=== PATIENT | male | born 1965 | race Caucasian/White ===

== ENCOUNTER 2020-04-04 08:40 | Emergency (ER) | payer MEDICAID ==
[2020-04-04] MEDS ORDERED: KETOROLAC 60 MG VIAL (30MG/ML) ONE (09:01)
[2020-04-04] MEDS ORDERED: ACETAMINOPHEN 500 MG TABLET ONE (09:02)
== END 2020-04-04 09:53 | disposition home or self-care (01) ==
LOC: EDH 08:40
DX: S40.012A Contusion of left shoulder, initial encounter (principal); S46.002A Unspecified injury of muscle(s) and tendon(s) of the rotator cuff of left shoulder, initial encounter; I10 Essential (primary) hypertension; F84.0 Autistic disorder; W18.39XA Other fall on same level, initial encounter; Y93.01 Activity, walking, marching and hiking; Y92.89 Other specified places as the place of occurrence of the external cause; Y99.8 Other external cause status
CPT/HCPCS: 73030; 96372; 99283; J1885

== ENCOUNTER 2020-12-28 12:23 | Emergency (ER) | payer MEDICAID ==
[~2020-12-28] VITALS: Ht 165.1 cm; Wt 72.6 kg
[2020-12-28 12:25] VITALS: BP 175/97
[2020-12-28] MEDS ORDERED: KETOROLAC 60 MG VIAL (30MG/ML) IM SCH (13:01)
[2020-12-28] MEDS ORDERED: CELE200 PO (13:58)
[2020-12-28] MEDS ORDERED: HYDROCODONE/ACETAMINOPHEN 5/325 MG TAB PO STA (14:08)
== END 2020-12-28 14:29 | disposition home or self-care (01) ==
LOC: EDH 12:23
DX: M54.50 Low back pain, unspecified (principal); F32.A Depression, unspecified; I10 Essential (primary) hypertension
CPT/HCPCS: 72100; 96372; 99283; J1885

== ENCOUNTER 2020-12-31 07:34 | Emergency (ER) | payer MEDICAID ==
[~2020-12-31] VITALS: Ht 177.8 cm; Wt 70.3 kg
[~2020-12-31 07:34] MED LIST: CELE200 PO
[2020-12-31] MEDS ORDERED: DEXAMETHASONE SOD PHOSPHATE 10MG/ML 1ML VIAL ONE (08:21)
[2020-12-31] MEDS ORDERED: 0.9%NACL 50ML 50 ML IV ONE (08:22)
[2020-12-31] MEDS ORDERED: KETOROLAC 30MG VIAL (30MG/ML) IV SCH (08:30)
[2020-12-31] MEDS ORDERED: DEXAMETHASONE 10MG/ML 1ML VIAL 0 MG in 0.9%NACL 50ML 50 ML IV SCH (08:30)
[2020-12-31] MEDS ORDERED: CARISOPRODOL 350 MG TABLET PO SCH (09:30)
[2020-12-31] MEDS ORDERED: CLONIDINE HCL 0.2 MG TABLET PO ONE (09:30)
[2020-12-31] MEDS ORDERED: HYDRALAZINE 20MG/ML VIAL IV SCH (09:30)
[2020-12-31] MEDS ORDERED: CARI350T PO (10:04)
[2020-12-31 10:06] VITALS: BP 147/85
== END 2020-12-31 10:17 | disposition home or self-care (01) ==
LOC: EDH 07:34
DX: M70.71 Other bursitis of hip, right hip (principal); M51.36 Other intervertebral disc degeneration, lumbar region; F84.0 Autistic disorder; I10 Essential (primary) hypertension; Z79.1 Long term (current) use of non-steroidal anti-inflammatories (NSAID); Z79.52 Long term (current) use of systemic steroids; Z79.899 Other long term (current) drug therapy
CPT/HCPCS: 96365; 96375; 99284; J0360; J1100; J1885

== ENCOUNTER 2021-03-03 17:46 | Emergency (ER) | payer MEDICAID ==
[~2021-03-03] VITALS: Ht 167.6 cm; Wt 68.0 kg
[~2021-03-03 17:46] MED LIST changes: +CARI350T PO
[2021-03-03] MEDS ORDERED: NITROGLYCERIN 1GM OINT 1 INCH/1GM TD ONE (18:00)
[2021-03-03] MEDS ORDERED: ASPIRIN 81MG CHEW TAB PO ONE (18:00)
[2021-03-03 18:05] LABS: BASOPHILS % (AUTO) 0.5 % (0.0-5.0); EOSINOPHILS % (AUTO) 1.7 % (0.0-8.0); HEMATOCRIT 44.9 % (42-54); LYMPHOCYTES % (AUTO) 21.3 % (21.0-51.0); MEAN CORPUSCULAR HEMOGLOBIN 29.5 pg (27.0-33.0); MEAN CORPUSCULAR HGB CONC 33.2 g/dL (32.0-36.0); MEAN CORPUSCULAR VOLUME 88.9 fL (79-99); NEUTROPHILS % (AUTO) 70.1 % (40.0-77.0); PLATELET COUNT (AUTO) 208 K/uL (130-400); RED BLOOD CELL COUNT(AUTO) 5.05 MIL/uL (4.50-6.20); RED CELL DISTRIBUTION WIDTH 12.4 % (11.0-15.5); WHITE BLOOD COUNT (AUTO) 7.6 K/uL (4.8-10.8)
[2021-03-03 18:14] LABS: CREATININE 1.3 mg/dL (0.5-1.5); POTASSIUM 3.9 mmol/L (3.5-5.1)
[2021-03-03 18:20] LABS: ALBUMIN 4.2 g/dL (3.5-5.0); BILIRUBIN,TOTAL 0.2 mg/dL (0.2-1.0); TOTAL PROTEIN, SERUM 7.1 g/dL (6.0-8.3)
[2021-03-03 18:33] LABS: AMPHET/METH SCREEN,URINE NEGATIVE (NEGATIVE); BARBITURATE SCREEN, URINE NEGATIVE (NEGATIVE); BENZODIAZEPINES SCREEN,URINE NEGATIVE (NEGATIVE); CANNABINOID SCREEN,URINE NEGATIVE (NEGATIVE); COCAINE SCREEN,URINE NEGATIVE (NEGATIVE); OPIATE SCREEN,URINE NEGATIVE (NEGATIVE); PHENCYCLIDINE SCREEN,URINE NEGATIVE (NEGATIVE)
[2021-03-03] MEDS ORDERED: KETOROLAC 30MG VIAL (30MG/ML) IV ONE (19:00)
[2021-03-03] MEDS ORDERED: CYCL-309 PO (21:39)
[2021-03-03] MEDS ORDERED: MELO7.5T12 PO (21:39)
[2021-03-03 21:45] VITALS: BP 147/91
== END 2021-03-03 21:45 | disposition home or self-care (01) ==
LOC: EDH 17:46
DX: R07.89 Other chest pain (principal); I10 Essential (primary) hypertension; Z79.1 Long term (current) use of non-steroidal anti-inflammatories (NSAID); Z79.82 Long term (current) use of aspirin
CPT/HCPCS: 36415; 71045; 80053; 80305; 84484 ×2; 85025; 93005 ×2; 96374; 99285; J1885

== ENCOUNTER 2021-08-22 03:21 | Emergency (ER) | payer OTHER, MEDICAID ==
[~2021-08-22 03:21] MED LIST changes: +CYCL-309 PO; +MELO7.5T12 PO
[2021-08-22] MEDS ORDERED: CLONIDINE HCL 0.1 MG TABLET ONE (04:08)
[2021-08-22] MEDS ORDERED: ACETAMINOPHEN 325 MG TAB ONE (04:13)
[2021-08-22] MEDS ORDERED: LABETALOL 20MG SYG IV ONE (04:41)
[2021-08-22] MEDS ORDERED: NAPR-1192 PO (04:47)
[2021-08-22 04:54] VITALS: BP 176/85
== END 2021-08-22 05:11 | disposition home or self-care (01) ==
LOC: EDH 03:21
DX: I10 Essential (primary) hypertension (principal); M54.2 Cervicalgia; R51.9 Headache, unspecified; F84.5 Asperger's syndrome; Z79.899 Other long term (current) drug therapy; V49.49XA Driver injured in collision with other motor vehicles in traffic accident, initial encounter; Y93.89 Activity, other specified; Y92.413 State road as the place of occurrence of the external cause; Y99.8 Other external cause status
CPT/HCPCS: 70450; 71045; 72125; 96374

== ENCOUNTER 2021-11-06 08:51 | Emergency (ER) | payer MEDICAID ==
[~2021-11-06] VITALS: Ht 177.8 cm; Wt 72.6 kg
[~2021-11-06 08:51] MED LIST changes: +NAPR-1192 PO
[2021-11-06] MEDS ORDERED: KETOROLAC 30MG VIAL (30MG/ML) IVP ONE (09:30)
[2021-11-06] MEDS ORDERED: ASPIRIN 81MG CHEW TAB PO ONE (09:30)
[2021-11-06] MEDS ORDERED: ASPIRIN 325MG EC TAB PO ONE (09:34)
[2021-11-06 10:06] LABS: BASOPHILS % (AUTO) 0.5 % (0.0-5.0); EOSINOPHILS % (AUTO) 2.7 % (0.0-8.0); HEMATOCRIT 42.6 % (42-54); LYMPHOCYTES % (AUTO) 13.7 % (21.0-51.0); MEAN CORPUSCULAR HEMOGLOBIN 30.2 pg (27.0-33.0); MEAN CORPUSCULAR HGB CONC 33.1 g/dL (32.0-36.0); MEAN CORPUSCULAR VOLUME 91.2 fL (79-99); MONOCYTES % (AUTO) 5.4 % (3.0-13.0); NEUTROPHILS % (AUTO) 77.4 % (40.0-77.0); PLATELET COUNT (AUTO) 216 K/uL (130-400); RED BLOOD CELL COUNT(AUTO) 4.67 MIL/uL (4.50-6.20); RED CELL DISTRIBUTION WIDTH 13.7 % (11.0-15.5); WHITE BLOOD COUNT (AUTO) 7.7 K/uL (4.8-10.8)
[2021-11-06 10:11] LABS: APPEARANCE,URINE CLEAR (CLEAR); BILIRUBIN,URINE NEGATIVE (NEGATIVE); COLOR,URINE YELLOW (YELLOW); GLUCOSE, URINE (UA) NEGATIVE (NEGATIVE); KETONES,URINE NEGATIVE (NEGATIVE); LEUKOCYTE ESTERASE ,URINE NEGATIVE (NEGATIVE); NITRATE,URINE NEGATIVE (NEGATIVE); OCCULT BLOOD,URINE TRACE-INTACT (NEGATIVE); PROTEIN,URINE NEGATIVE (NEGATIVE); UROBILINOGEN,URINE 0.2 mg/dL (0.2-1.0)
[2021-11-06 10:13] LABS: CREATININE 1.2 mg/dL (0.5-1.5); POTASSIUM 3.7 mmol/L (3.5-5.1)
[2021-11-06 10:18] LABS: BACTERIA,URINE Rare /HPF (None Seen); RBC,URINE 0-1 /HPF (0-1); SQUAMOUS EPITHELIAL CELL,UR Rare /HPF (0-2); WBC,URINE 0-1 /HPF (0-1)
[2021-11-06] MEDS ORDERED: NITROGLYCERIN 1GM OINT 1 INCH/1GM TD ONE ×2 (12:06→12:30)
[2021-11-06] MEDS ORDERED: MORPHINE 4 MG SYG ONE (12:06)
[2021-11-06] MEDS ORDERED: MORPHINE 4 MG SYG IVP ONE (12:30)
[2021-11-06 13:11] VITALS: BP 176/99
[2021-11-06] MEDS ORDERED: DICL50TA9 PO (13:28)
== END 2021-11-06 13:16 | disposition left against medical advice (07) ==
LOC: EDH 08:51
DX: M79.622 Pain in left upper arm (principal); R94.31 Abnormal electrocardiogram [ECG] [EKG]; F41.9 Anxiety disorder, unspecified; F32.A Depression, unspecified; I10 Essential (primary) hypertension; F84.5 Asperger's syndrome; Z79.899 Other long term (current) drug therapy
CPT/HCPCS: 99285; 96374; 71046; 96375; 84484 ×2; 80048; 85025; 81001; 36415; 73030; 93005 ×2; J2270; J1885